=== PATIENT | male | born 1965 | race Caucasian/White ===

== ENCOUNTER 2016-05-03 13:29 | Outpatient (CLI) | payer MEDICAID | END 2016-05-03 13:30 | disposition home or self-care (01) | DX: M16.12 Unilateral primary osteoarthritis, left hip (principal) ==

== ENCOUNTER 2016-07-04 13:30 | Outpatient (CLI) | payer MEDICAID | END 2016-07-04 13:31 | disposition home or self-care (01) | DX: Z01.818 Encounter for other preprocedural examination (principal) ==

== ENCOUNTER 2016-07-06 07:28 | Outpatient (CLI) | payer MEDICAID | END 2016-07-06 07:29 | disposition home or self-care (01) | DX: Z01.812 Encounter for preprocedural laboratory examination (principal) ==

== ENCOUNTER 2016-08-20 10:01 | Inpatient (IN) | payer MEDICAID ==
[2016-08-20] MEDS ORDERED: LACTATED RINGERS 1,000 ML IV ONE ×4 (10:22→16:52)
[2016-08-20] MEDS ORDERED: ceFAZolin 2 GM/50 ML 50 ML IV ONE (10:38)
[2016-08-20] MEDS ORDERED: ROPIVACAINE 0.2% PF 20 ML AMPULE SUBQ ONE (13:34)
[2016-08-20] MEDS ORDERED: MORPHINE PF 5 MG/10 ML AMP SUBQ ONE (13:34)
[2016-08-20] MEDS ORDERED: EPINEPHrine 1 MG/ML AMP IVP ONE (13:34)
[2016-08-20] MEDS ORDERED: KETOROLAC 15 MG/ML VIAL IVP ONE (13:34)
[2016-08-20] MEDS ORDERED: BUPIVACAINE 0.25%-EPI 1:200000 PF 30 ML VIAL SUBQ ONE (13:35)
[2016-08-20] MEDS ORDERED: BISACODYL 5 MG TABLET PO PRN (16:16)
[2016-08-20] MEDS ORDERED: ONDANSETRON 4 MG/2 ML VIAL IVP PRN (16:16)
[2016-08-20] MEDS ORDERED: PROCHLORPERAZINE 10 MG/2 ML VIAL IVP PRN (16:16)
[2016-08-20] MEDS ORDERED: DOCUSATE SODIUM 100 MG CAPSULE PO PRN (16:16)
[2016-08-20] MEDS ORDERED: ACETAMINOPHEN 325 MG TABLET PO PRN (16:16)
[2016-08-20] MEDS ORDERED: BISACODYL 10 MG SUPP PR PRN (16:16)
[2016-08-20] MEDS ORDERED: diphenhydrAMINE 25 MG CAPSULE PO PRN (16:16)
[2016-08-20] MEDS ORDERED: diphenhydrAMINE INJ 50 MG/ML VIAL IVP PRN (16:16)
[2016-08-20] MEDS ORDERED: SENNA 8.6 MG TABLET PO PRN (16:16)
[2016-08-20] MEDS ORDERED: ACETAMINOPHEN 1,000 MG/100 ML 100 ML IV ONE (16:22)
--- NOTE | 2016-08-20 16:30 | OPERATIVE REPORT ---
Operative Report - General Admit Date: 08/20/16 Procedure Date: 08/20/16 Planned Procedure: Left Total Hip Arthroplasty Pre-Op Diagnosis: Left Hip Primary Osteoarthritis Post Op Diagnosis: Same - Procedure Note Primary Surgeon: Hermann Monterroso MD Anesthesia Provider: Kathia Angel CRNA Anesthesia Technique: Combo spinal/epidural, General ET tube, Local Estimated Blood Loss (in cc): 700 Complications: None. - Other Other Information/Narrative: Implants: Gui/Biomet TaperLock Femoral stem Size 14 x 148 mm, High Offset. Acetabular Shell, 56 mm OD, porous ingrowth UHMWPE Acetabular Liner, 40 mm ID. Ceramic Head, Standard Neck Length x 40 mm OD w/ Lexa Taper Collar. Fluids: 2800 mL LR. Urine: 700 mL. Condition: Stable. Disposition: PACU >> MedSurg.
[2016-08-20] MEDS: HYDROmorphone 1 MG/ML SYRINGE ONE ×2 (16:43→16:54)
[2016-08-20] MEDS: SODIUM CHLORIDE FLUSH 0.9% 10 ML SYRINGE IVP SCH (17:33)
[2016-08-20] MEDS: KETOROLAC 30 MG/ML VIAL IVP PRN (17:34)
[2016-08-20] MEDS: SODIUM CHLORIDE 0.45% 1,000 ML IV SCH (17:34)
[2016-08-20] MEDS: HYDROmorphone 1 MG/ML SYRINGE IVP PRN ×3 (19:04→23:58)
[2016-08-20] MEDS: oxyCOD/ACETAMIN 5 MG/325 MG TABLET PO PRN (19:44)
[2016-08-20] MEDS: traMADol 50 MG TABLET PO PRN (20:40)
[2016-08-20] MEDS: ceFAZolin 2 GM/50 ML 50 ML IV SCH (21:59)
--- NOTE | 2016-08-20 22:30 | XRAY Preliminary Report ---
Exam: XR Hip w/Pelvis 2-3V LT IMPRESSION: 1. Left total hip prosthesis. No unexpected postoperative findings. 2. Mild degenerative joint disease in the right hip. [facility] SITE ID: [id number]
--- NOTE | 2016-08-20 22:33 | XRAY Report ---
EXAM: LEFT HIP AND PELVIS RADIOGRAPHY EXAM DATE: 08/20/2016 10:22 PM. HISTORY: Post-op total hip. COMPARISONS: 05/03/2016. TECHNIQUE: 1 view of the pelvis and 1 view of the hip. FINDINGS: Bones: There has been placement of a left total hip prosthesis. No acute fracture seen. Joints: No dislocation. Mild degenerative joint disease in the right hip. Soft Tissues: Grossly unremarkable. IMPRESSION: 1. Left total hip prosthesis. No unexpected postoperative findings. 2. Mild degenerative joint disease in the right hip. [facility] Referring Provider Line: [phone] SITE ID: [id number]
[2016-08-21] MEDS: HYDROmorphone 1 MG/ML SYRINGE IVP PRN ×5 (02:35→19:53)
[2016-08-21] MEDS: SODIUM CHLORIDE 0.45% 1,000 ML IV SCH ×2 (03:04→14:08)
[2016-08-21] MEDS: KETOROLAC 30 MG/ML VIAL IVP PRN ×2 (04:15→11:07)
[2016-08-21] MEDS: ceFAZolin 2 GM/50 ML 50 ML IV SCH (05:22)
[2016-08-21] MEDS: SODIUM CHLORIDE FLUSH 0.9% 10 ML SYRINGE IVP SCH ×3 (05:26→23:25)
[2016-08-21] MEDS: oxyCOD/ACETAMIN 5 MG/325 MG TABLET PO PRN ×4 (06:05→19:53)
[2016-08-21] MEDS: ENOXAPARIN 40 MG/0.4 ML SYRINGE SUBQ SCH (08:39)
[2016-08-21 09:28] LABS: HCT - HEMATOCRIT 37.5 % (42.0-52.0)
[2016-08-21] MEDS ORDERED: MIDAZOLAM 2 MG/2 ML VIAL IVP ONE (12:41)
[2016-08-21] MEDS ORDERED: METOPROLOL 5 MG/5 ML VIAL IVP ONE (12:41)
[2016-08-21] MEDS ORDERED: BUPIVACAINE 0.5% PF 30 ML VIAL SUBQ ONE (12:41)
[2016-08-21] MEDS ORDERED: TRANEXAMIC ACID 1,000 MG/10 ML VIAL IV ONE (12:41)
[2016-08-21] MEDS ORDERED: fentaNYL 100 MCG/2 ML VIAL IVP ONE (12:41)
[2016-08-22] MEDS: HYDROmorphone 1 MG/ML SYRINGE IVP PRN ×7 (00:20→22:00)
[2016-08-22] MEDS: SODIUM CHLORIDE 0.45% 1,000 ML IV SCH ×2 (00:21→11:00)
[2016-08-22] MEDS: ACETAMINOPHEN 1,000 MG/100 ML 100 ML IV PRN ×2 (03:49→19:23)
[2016-08-22] MEDS: SODIUM CHLORIDE FLUSH 0.9% 10 ML SYRINGE IVP SCH ×3 (05:01→22:00)
[2016-08-22] MEDS: oxyCOD/ACETAMIN 5 MG/325 MG TABLET PO PRN ×2 (08:24→13:14)
[2016-08-22] MEDS: KETOROLAC 30 MG/ML VIAL IVP PRN ×3 (08:25→22:00)
[2016-08-22] MEDS: ENOXAPARIN 40 MG/0.4 ML SYRINGE SUBQ SCH (10:59)
[2016-08-22] MEDS: SODIUM CHLORIDE FLUSH 0.9% 10 ML SYRINGE IVP PRN ×2 (11:04→14:17)
[2016-08-22] MEDS: traMADol 50 MG TABLET PO PRN (16:33)
[2016-08-23] MEDS: SODIUM CHLORIDE 0.45% 1,000 ML IV SCH ×3 (00:18→11:52)
[2016-08-23] MEDS: oxyCOD/ACETAMIN 5 MG/325 MG TABLET PO PRN ×3 (01:05→11:52)
[2016-08-23] MEDS: SODIUM CHLORIDE FLUSH 0.9% 10 ML SYRINGE IVP SCH (06:00)
[2016-08-23] MEDS: KETOROLAC 30 MG/ML VIAL IVP PRN (07:19)
[2016-08-23] MEDS: ENOXAPARIN 40 MG/0.4 ML SYRINGE SUBQ SCH (09:33)
[2016-08-23] MEDS: traMADol 50 MG TABLET PO PRN ×2 (09:37→14:39)
[2016-08-23 13:09] VITALS: BP 146/99
--- NOTE | 2016-08-23 13:35 | PROVIDER PROGRESS NOTE ---
Subjective - Prog Note Date Prog Note Date: 08/23/16 Prog Note Time: 13:33 - Subjective Pt reports feeling: Improved (Pain better controlled with combination of Percocet and Tramadol. Up wioth PT today and feels that he is ready to go home.) Objective - Vital Signs/Intake & Output Reviewed Vital Signs: Yes Vital Signs: Vital Signs x48h Temp Pulse Resp BP BP Pulse Ox 08/23/16 13:00 36.8 C 105 H 20 146/99 H 95 08/23/16 08:28 37.0 C 113 H 20 166/103 H 97 Intake & Output: Intake & Output 08/20/16 08/21/16 08/22/16 08/23/16 23:59 23:59 23:59 23:59 Intake Total 3741 2856 2410 1465 Output Total 1800 3800 3180 1500 Balance 1941 -944 -770 -35 - Objective General Appearance: positive: No acute distress, Alert Eyes Bilateral: positive: Normal inspection ENT: positive: ENT inspection nml Neck: positive: Nml inspection Respiratory: positive: No respiratory distress, Breath sounds nml Cardiovascular: positive: Regular rate & rhythm Peripheral Pulses: 2+ Dorsalis pedis (R), 2+ Dorsalis pedis (L), 2+ Posterior tibialis (R), 2+ Posterior tibialis (L) Abdomen: positive: Non-tender, Nml bowel sounds, No distention. negative: Guarding Back: positive: Nml inspection Skin: positive: Color nml, No rash, Warm, Dry Extremities: positive: Other (SWound over Left Buttocks without significant erythema.). negative: Calf tenderness, Rody's sign/cords Neurologic/Psychiatric: positive: Oriented x3, Motor nml, Sensation nml, Mood/ affect nml - Lab Results Fish Bones: 08/21/16 09:20 Assessment/Plan - Problem List (1) Status post total hip replacement, left Impression: Stable Postop. Plan: 1. D/C to home. 2. Walker ambulation, WBAT LLE. 3. Anterior Hip precautions. 4. Scrips fopr Percocet and Tramadol. 5. f/u, Ortho, Loc, wound check, 2 weeks. 6. PT referral.
--- NOTE | 2016-08-23 13:41 | Discharge Plan ---
Discharge Plan Disposition: Home, Self Care Condition: Good Prescriptions: oxyCODONE/ACET 5/325 [Percocet 5 mg/325 mg] 1 tab PO Q4HR PRN #40 tablet PRN Reason: Breakthrough Pain traMADol [Ultram] 50 mg PO Q4HR PRN #40 tablet PRN Reason: Pain Diet: Regular Activity Restrictions: Wt Bearing as Tolerated Shower Restrictions: No Driving Restrictions: Yes Assistance Devices: Walker Weight Bearing: Full Weight Additional Instructions or Follow Up instructions: Followup with Dr. Monterroso, , two weeks for wound check. Follow-Up Care: Outpatient Rehab - PT (Evaluate and Treat, 3w4. Left hip anterior precautions WBAT LLE.) No Smoking: If you smoke, Please STOP! Call for help. Follow-up with: Cat Florez ARNP [Primary Care Provider] - Hermann Monterroso MD [Provider Admit Priv/Credential] -
--- NOTE | 2016-10-02 19:52 | DISCHARGE SUMMARY ---
DATE OF ADMISSION: 08/20/2016 DATE OF DISCHARGE: 08/23/2016 CONDITION ON DISCHARGE: Stable. FINAL DIAGNOSES: 1. Primary osteoarthritis left hip. 2. Status post left total hip arthroplasty. 3. Aftercare following left hip replacement surgery. PROCEDURES: Left total hip arthroplasty on 08/20/2016. HISTORY OF PRESENT ILLNESS: This is a 51-year-old male with a longstanding history of progressive beckie andres left hip osteoarthritis who had been refractory to conservative management. He was admitted to [facility] on 08/20/2016 for left total hip arthroplasty. LABORATORY DATA: 08/21/2016 hematology: Hemoglobin 13.0, hematocrit 37.5. HOSPITAL COURSE: The patient underwent an uncomplicated left total hip arthroplasty on 08/20/2016. Hi s postoperative course was complicated during the first 36 hours by issues with pain control which we re finally achieved with a combination of Dilaudid, Toradol, IV Tylenol and oxycodone/APAP. He ambula darryl with physical therapy and made steady progress with a walker. He was discharged on postoperative day 3. DISCHARGE MEDICATIONS: 1. Acetaminophen 325 mg tablets 2 to 3 tablets p.o. q. 6 hrs p.r.n. pain (patient has). 2. Oxycodone/acetaminophen 5/325 mg, 1 tablet p.o. q. 4 hours p.r.n. pain, #40, no refills. 3. Tramadol 50 mg tablet, 1 tablet p.o. q. 4 hours p.r.n. pain #40, no refills. DISCHARGE INSTRUCTIONS: 1. DIET: Regular. 2. ACTIVITY: Weight bearing as tolerated left lower extremity with walker for ambulation. The patient is discharged to home. Followup with Orthopaedic surgery in 2 weeks for wound check (Dr. Monterroso, ). CODE STATUS: FULL CODE. JOB #: [id number] EXT JOB #:[id number]
--- NOTE | 2016-10-03 06:18 | OPERATIVE REPORT ---
DATE OF SURGERY: 08/20/2016 00:00:00 PREOPERATIVE DIAGNOSIS: Left hip primary osteoarthritis. POSTOPERATIVE DIAGNOSIS: Left hip primary osteoarthritis. NAME OF PROCEDURE: Left total hip arthroplasty via an anterolateral approach. SURGEON: Hermann Monterroso MD ANESTHESIA: Antoine Dickson CRNA ANESTHESIA TECHNIQUE: Combination spinal, epidural and general endotracheal tube with local anesthest ic to the incision sites. ESTIMATED BLOOD LOSS: 700 mL. COMPLICATIONS: None. IMPLANTS: 1. Gui Biomet taper lock femoral stem size 14 x 148 mm high offset. 2. Acetabular shell, 56 mm outer diameter, porous ingrowth. 3. Ultrahigh molecular weight polyethelene acetabular liner 40 mm inner diameter. 4. Ceramic head standard neck length x40 mm outer diameter with Hernandez taper collar. FLUIDS: 2800 mL of lactate ringers. URINE: 700 mL. CONDITION AT END OF PROCEDURE: Stable. DISPOSITION: PACU then Med Surg. INDICATIONS: This is a 51-year-old male with a longstanding history of progressive osteoarthritis in his left hip. Despite conservative measures including a cane to the right hand, activity, modificatio n, physical therapy and exercise, analgesics consisting of acetaminophen and nonsteroidal anti-inflam matory medications, the patient's condition continued to worsen to the point where pain was preventin g him from sleeping at night and preventing him from taking part in most activities. After discussion with the patient, we elected to schedule him for left total hip arthroplasty. PROCEDURE IN DETAIL: After consent identification, the patient was brought to the operating room and placed in the supine position on the operating table. After induction of a general endotracheal anest hesia and appropriate monitoring, a roller board was used to transfer the patient to the operating ta ble on a peg board. The patient was placed in a right lateral decubitus position. An axillary roll wa s placed in the right axilla. Padding was placed underneath the right peroneal nerve. Padded pegs wer e placed at the sternum, the sacrum, the right ischium and the pubis to maintain the pelvis in a perp endicular orientation with respect to the floor. The left lower extremity was then prepped and draped free in the usual sterile fashion for hip replac ement surgery. After an appropriate timeout was conducted, we flexed the hip to a 45 degree angle. A straight line i ncision was made over the lateral aspect of the left thigh paralleling the femur, centered over the g reater trochanter extending 12 cm proximal and 12 cm distal to the tip of the greater trochanter. Ski n and subcutaneous tissue were divided down to the iliotibial band and the tensor fascia sara externa l fascia. These were divided longitudinal with a curved Salvador scissors. Finger dissection was carried out over the gluteus musculature proximal to the iliotibial band and tensor fascia sara. Charnley ret ractor was then placed deep to the IT band. We resected the trochanteric bursa with the electrocauter y. We identified the anterior third of the gluteus medius musculature. We reflected a digastric cuff consisting of the anterior portion of the vastus lateralis and the tendinous origin, as well as the t endinous insertion of the gluteus medius muscle with the anterior third of the muscle off of the ante rior portion of the greater trochanter. We identified the anterior hip capsule with the attached glut eus minimus. We performed an H-shaped capsulotomy with the leg slightly externally rotated. Cobra ret ractors were placed deep to the capsular layer. This allowed us to continue the external rotation of the hip to dislocate the hip with the assistance of a femoral skid. This allowed us to complete our c apsulotomy inferiorly to the lesser trochanter and superiorly over the medial wall of the greater tro chanter back to the piriformis fossa. With the lower leg perpendicular to the floor and placed in the hip bag, we mapped out a femoral cut at a 45 degree angle approximately 1 cm proximal to the lesser trochanter. This cut was made with a r eciprocating saw and completed with an osteotome. A cork screw was then used to remove the femur kristian g with electrocautery to complete reflection of any capsular attachments. A Rongeur and curette were used to clean out the floor of the acetabulum in the cotyloid fossa. We th en sequentially reamed the acetabulum beginning with a 47 mm diameter reamer up to a 55 mm size. A 55 mm trial was then inserted in the acetabulum and noted to have a good fit. We used the cancellous re amings from the last [address] in the acetabulum and placed the 55 mm reamer on reverse, imp acting this bone in interstices and cystic structures. We then impacted a 56 mm outer diameter porous ingrowth acetabular shell into the acetabulum in approximately 45 degrees of coverage and 10 degrees of anteversion. Good interference fit was obtained without the necessity of placing any screws. We t lynn used the [employer] cutter and lateralizing reamer to localize the canal of the femur. We sequentiall y broached beginning with a size 4 broach up to a size 14 broach which gave good rotational fit and d epth. We selected a standard offset 40 mm trial head with 0 neck length and inserted this onto the si ze 14 broach to trial the components. We inserted the polyethylene acetabular liner into the acetabul ar component. We then reduced the hip and ranged it and performed a shuck test with satisfactory resu lts. We then dislocated the trial femoral head and neck and femur from the acetabulum. We removed the trial components. We irrigated the acetabulum. We then impacted a size 14 x 148 mm high offset femor al stem into the femoral canal. Good rotational stability was noted. Excellent interference fit was a lso noted. We then impacted the Hernandez taper collar and standard neck length x40 mm outer diameter ceramic head o nto the trunnion of the femoral component. After further irrigation, we irrigated the hip capsule and surrounding tissues with 60 mL of our combination Duramorph, Toradol, epinephrine and bupivacaine in jection totaling 60 mL. We then reduced the hip and ranged it again to verify good fit of the components and negative shuck t est. Good stability was noted. We then sequentially closed the hip by repairing the capsulotomy with a running interlocked #5 Ethibond suture. We used a towel clip to make suitable holes in the anterior superior portion of the greater trochanter and used #2 fiber wire sutures to repair the anterior por tion of the gluteus medius and digastric sleeve of the anterior portion of the vastus lateralis to th e anterior superior portion of the greater trochanter. Good repair was affected. We then irrigated th e wound again and closed the iliotibial band with a running interlock #5 Ethibond suture. Interrupted 2-0 Vicryl sutures were then placed to the subcuticular layer followed by running 3-0 Monocryl sutur e to the dermis. We injected the wound with 40 mL of 0.5% Marcaine with epinephrine. After the thigh and drying, we placed a Mepilex silver dressing over the wound. On completion of the procedure, the p atellen was extubated and transferred to the recovery room in good condition having tolerated the proc edure well. JOB #: [id number] EXT JOB #:[id number]
== END 2016-08-23 15:15 | disposition home or self-care (01) | DRG 470 ==
LOC: MS 10:01
PROVIDERS: ADMIT Orthopaedic Surgery; ATTEND Orthopaedic Surgery
PROC: 0SRB02A Replacement of Left Hip Joint with Metal on Polyethylene Synthetic Substitute, Uncemented, Open Approach (ICD-10-PCS; principal; 2016-08-20 11:00)
DX: M16.12 Unilateral primary osteoarthritis, left hip (principal); I48.91 Unspecified atrial fibrillation; B19.20 Unspecified viral hepatitis C without hepatic coma; G89.18 Other acute postprocedural pain; F17.210 Nicotine dependence, cigarettes, uncomplicated; E66.9 Obesity, unspecified; Z68.35 Body mass index [BMI] 35.0-35.9, adult
CPT/HCPCS: 36415; 85014; 85018

== ENCOUNTER 2016-08-26 12:50 | Emergency (ER) | payer MEDICAID ==
[2016-08-26 13:09] VITALS: BP 122/82
--- NOTE | 2016-08-26 14:07 | ED Physician Documentation ---
History of Present Illness - Stated complaint Stated Complaint: BANDAGES REPLACED - Chief complaint Chief Complaint: Wound - Additonal information Additional information: hx from pt 51 male s/p hip replacement at [facility] Dr Monterroso last week his bandage came partially off and he would like it replaced otherwise doing well no fever cough soa cp Review of Systems Musculoskeletal: reports: Other (post L hip) PD PAST MEDICAL HISTORY - Past Medical History Cardiovascular: Atrial fibrillation Respiratory: None Endocrine/Autoimmune: None GI: Hepatitis : None HEENT: Chronic vision loss Psych: None Musculoskeletal: Osteoarthritis Derm: None - Past Surgical History Past Surgical History: Yes General: Appendectomy Ortho: Other - Present Medications Home Medications: Ambulatory Orders Medication Instructions Recorded Confirmed Acetaminophen [Tylenol] 650 - 975 mg PO Q4HR PRN #0 tablet 08/23/16 08/26/16 oxyCODONE/ACET 5/325 [Percocet 5 1 tab PO Q4HR PRN #40 tablet 08/23/16 08/26/16 mg/325 mg] traMADol [Ultram] 50 mg PO Q4HR PRN #40 tablet 08/23/16 08/26/16 - Allergies Allergies/Adverse Reactions: Allergies Allergy/AdvReac Type Severity Reaction Status Date / Time No Known Drug Allergies Allergy Verified 08/26/16 13:09 - Social History Does the pt smoke?: Yes Smoking Status: Current every day smoker Does the pt drink ETOH?: No Does the pt have substance abuse?: No - Immunizations Immunizations are current?: Yes - POLST Patient has POLST: No PD ED PE NORMAL - Vitals Vital signs reviewed: Yes - Extremities Extremities: Other (L hip banage appears to have come off where skin folds, carefully removed rest, one or two sterisrips came off to, wound healing well, no erythema swelling dehisc dc) Results - Vitals Vitals: Vital Signs - 24 hr 08/26/16 13:05 Temperature 36.3 C L Heart Rate 93 Respiratory 14 Rate Blood Pressure 122/82 H O2 Saturation 100 Oxygen O2 Source Room air PD MEDICAL DECISION MAKING - ED course ED course: dressing replaced Departure - Departure Disposition: 01 Home, Self Care Clinical Impression: Visit for wound check Condition: Good Follow-Up: Hermann Monterroso MD [Provider Admit Priv/Credential] - Comments: Your surgery is healing very well Follow up with Dr Monterroso as scheduled
== END 2016-08-26 14:10 | disposition home or self-care (01) ==
LOC: ED 12:50
DX: Z48.01 Encounter for change or removal of surgical wound dressing (principal); Z96.642 Presence of left artificial hip joint; F17.200 Nicotine dependence, unspecified, uncomplicated
CPT/HCPCS: 99281

== ENCOUNTER 2017-03-08 09:45 | Outpatient (CLI) | payer MEDICAID | END 2017-03-08 10:00 | disposition home or self-care (01) | LOC: RT.N 09:45 | PROVIDERS: ATTEND Nurse Practitioner Gerontology | DX: I48.91 Unspecified atrial fibrillation (principal) | CPT/HCPCS: 93005 ==

== ENCOUNTER 2017-03-08 10:28 | Outpatient (CLI) | payer MEDICAID ==
[2017-03-08 13:02] LABS: BASOPHILS # (AUTO) 0.1 10^3/uL (0.0-0.1); EOSINOPHILS # (AUTO) 0.4 10^3/uL (0.0-0.7); EOSINOPHILS % (AUTO) 5.4 %; HGB - HEMOGLOBIN 14.1 g/dL (14.0-18.0); LYMPHOCYTES # (AUTO) 1.2 10^3/uL (1.5-3.5); LYMPHOCYTES % (AUTO) 16.9 %; MEAN CORPUSCULAR HEMOGLOBIN 29.8 pg (27.0-31.0); MEAN CORPUSCULAR HGB CONC 34.9 g/dL (32.0-36.0); MEAN CORPUSCULAR VOLUME 85.3 fL (80.0-94.0); MEAN PLATELET VOLUME 7.5 fL (7.4-11.4); MONOCYTES # (AUTO) 0.6 10^3/uL (0.0-1.0); NEUTROPHILS # (AUTO) 5.1 10^3/uL (1.5-6.6); NEUTROPHILS % (AUTO) 68.7 %; PLT - PLATELET COUNT 265 10^3/uL (130-450); RED BLOOD COUNT 4.74 10^6/uL (4.70-6.10); RED CELL DISTRIBUTION WIDTH 14.5 % (12.0-15.0); WHITE BLOOD COUNT 7.4 x10^3/uL (4.8-10.8)
[2017-03-08 13:08] LABS: ALBUMIN 3.8 g/dL (3.2-5.5); ALBUMIN/GLOBULIN RATIO 1.2 (1.0-2.2); ALKALINE PHOSPHATASE 64 IU/L (42-121); ALT ALANINE AMINOTRANSFERASE 25 IU/L (10-60); AST ASPARTATE AMINOTRANSFERASE 27 IU/L (10-42); BILIRUBIN,TOTAL 0.8 mg/dL (0.2-1.0); BUN - BLOOD UREA NITROGEN 15 mg/dL (6-20); CALCIUM 8.5 mg/dL (8.5-10.3); CARBON DIOXIDE - CO2 27 mmol/L (21-32); CHLORIDE 103 mmol/L (101-111); CHOL/HDL RATIO 2.7 (<5.0); CHOLESTEROL 153 mg/dL; CREATININE 0.8 mg/dL (0.6-1.2); GFR - MDRD 101 (>89); GLUCOSE 86 mg/dL (70-100); HDL CHOLESTEROL 57 mg/dL; LDL CHOLESTEROL,CALCULATED 86 mg/dL; LDL/HDL RATIO 1.5 (<3.6); SODIUM 137 mmol/L (135-145); TOTAL PROTEIN 7.1 g/dL (6.7-8.2); VLDL CHOLESTEROL 10 mg/dL
== END 2017-03-08 10:29 | disposition home or self-care (01) ==
LOC: LAB.N 10:28
PROVIDERS: ATTEND Nurse Practitioner Gerontology
DX: E87.6 Hypokalemia (principal); B19.20 Unspecified viral hepatitis C without hepatic coma; E66.9 Obesity, unspecified
CPT/HCPCS: 36415; 80050; 80061

== ENCOUNTER 2017-06-02 18:11 | Outpatient (CLI) | payer MEDICAID | END 2017-06-02 18:12 | disposition critical access hospital (66) | LOC: EMS 18:11 | PROVIDERS: ATTEND Surgery | DX: S81.832A Puncture wound without foreign body, left lower leg, initial encounter (principal); X58.XXXA Exposure to other specified factors, initial encounter; Y93.01 Activity, walking, marching and hiking | CPT/HCPCS: A0425; A0429 ==

== ENCOUNTER 2017-06-02 18:20 | Emergency (ER) | payer MEDICAID ==
[2017-06-02 18:24] VITALS: BP 130/118
[2017-06-02] MEDS ORDERED: LIDOCAINE 1%-EPI 1:100000 20 ML MDV ONE (18:33)
--- NOTE | 2017-06-02 18:34 | ED Physician Documentation ---
PD HPI LOWER EXT INJURY - Stated complaint Stated Complaint: PUNCTURE WOUND - Chief complaint Chief Complaint: Ext Problem - History obtained from History obtained from: Patient, EMS - History of Present Illness PD HPI LOW EXT INJURY LOCATION: Left, Other (He has a varicose vein on the left frazier and he bumped it while working outside today and it started bleeding profusely. He is up-to-date on tetanus.) Pain level max: 0 Review of Systems Constitutional: reports: Reviewed and negative Cardiac: reports: Reviewed and negative Respiratory: reports: Reviewed and negative GI: reports: Reviewed and negative PD PAST MEDICAL HISTORY - Past Medical History Cardiovascular: Atrial fibrillation Respiratory: None Endocrine/Autoimmune: None GI: Hepatitis : None HEENT: Chronic vision loss Psych: None Musculoskeletal: Osteoarthritis Derm: None - Past Surgical History Past Surgical History: Yes General: Appendectomy Ortho: Other - Present Medications Home Medications: Ambulatory Orders Medication Instructions Recorded Confirmed traMADol [Ultram] 50 mg PO Q4HR PRN #40 tablet 08/23/16 08/26/16 - Allergies Allergies/Adverse Reactions: Allergies Allergy/AdvReac Type Severity Reaction Status Date / Time No Known Drug Allergies Allergy Verified 06/02/17 18:24 - Social History Does the pt smoke?: Yes Smoking Status: Current every day smoker Does the pt drink ETOH?: No Does the pt have substance abuse?: No - Immunizations Immunizations are current?: Yes - POLST Patient has POLST: No PD ED PE NORMAL - Vitals Vital signs reviewed: Yes - General General: Alert and oriented X 3, No acute distress - Extremities Extremities: Other (There is a profusely bleeding small puncture wound over varicose vein on the anterior left leg) - Neuro Neuro: Alert and oriented X 3, Normal speech - Psych Psych: Normal mood, Normal affect Results - Vitals Vitals: Vital Signs - 24 hr 06/02/17 18:22 Temperature 36.3 C L Heart Rate 99 Respiratory 18 Rate Blood Pressure 130/118 H O2 Saturation 98 Oxygen O2 Source Room air Procedures - Laceration (location) L leg Length in cm: 0.2 Wound type: Linear Anesthesia: Lidocaine 1% with epi Wound Preparation: Chlorhexadine Skin layer closure: Nylon, Interrupted, Size #-0 - enter number (4-0), Sutures - enter # (2) Other: Tetanus UTD Complexity: Simple PD MEDICAL DECISION MAKING - ED course ED course: 52-year-old gentleman with bleeding varicose vein, 2 sutures were placed and it was hemostatic after that. Departure - Departure Disposition: 01 Home, Self Care Clinical Impression: Bleeding from varicose vein Condition: Good Record reviewed to determine appropriate education?: Yes Instructions: ED Veins Varicose Comments: Come back for any signs of infection which would include: Redness, swelling, drainage, increased pain, or fevers. Follow-up with your physician in 10-14 days for suture removal. Your blood pressure was elevated today on check into the emergency department. This does not mean that you have hypertension, it is a common phenomenon to come to the emergency department and have elevated blood pressure. I recommend that you see your primary care physician within the week to have it rechecked when you are feeling better.
== END 2017-06-02 18:52 | disposition home or self-care (01) ==
LOC: EDUNIT# → ED 18:20
DX: I83.892 Varicose veins of left lower extremity with other complications (principal); F17.200 Nicotine dependence, unspecified, uncomplicated
CPT/HCPCS: 12001; 99282; 99283

== ENCOUNTER 2017-06-13 07:59 | Outpatient (CLI) | payer MEDICAID ==
[2017-06-13 08:30] LABS: CHOL/HDL RATIO 2.6 (<5.0); CHOLESTEROL 155 mg/dL; HDL CHOLESTEROL 60 mg/dL; LDL CHOLESTEROL,CALCULATED 85 mg/dL; LDL/HDL RATIO 1.4 (<3.6); VLDL CHOLESTEROL 10 mg/dL
== END 2017-06-13 08:00 | disposition home or self-care (01) ==
LOC: LAB 07:59
PROVIDERS: ATTEND Internal Medicine Cardiovascular Disease
DX: Z00.00 Encounter for general adult medical examination without abnormal findings (principal)
CPT/HCPCS: 36415; 80061; 83721

== ENCOUNTER 2017-06-16 08:03 | Emergency (ER) | payer MEDICAID ==
[2017-06-16 08:09] VITALS: BP 140/98
[2017-06-16] MEDS ORDERED: BACITRACIN OINT TOP ONE (08:20)
--- NOTE | 2017-06-16 08:30 | ED Physician Documentation ---
History of Present Illness - Stated complaint Stated Complaint: SUTURE REMOVAL/L LEG - Chief complaint Chief Complaint: Ext Problem - Additonal information Additional information: pt had a norris scratch his L ant lower leg causing a varicose vein to bleed 2 weeks ago seen in ED and 2 sutures placed doing well here for suture removal Review of Systems Skin: reports: Laceration (s) PD PAST MEDICAL HISTORY - Past Medical History Cardiovascular: Atrial fibrillation Respiratory: None Endocrine/Autoimmune: None GI: Hepatitis : None HEENT: Chronic vision loss Psych: None Musculoskeletal: Osteoarthritis Derm: None - Past Surgical History Past Surgical History: Yes General: Appendectomy Ortho: Other - Present Medications Home Medications: Ambulatory Orders Medication Instructions Recorded Confirmed Metoprolol Succinate 50 mg PO 06/16/17 - Allergies Allergies/Adverse Reactions: Allergies Allergy/AdvReac Type Severity Reaction Status Date / Time No Known Drug Allergies Allergy Verified 06/02/17 18:24 - Social History Does the pt smoke?: Yes Smoking Status: Current every day smoker Does the pt drink ETOH?: No Does the pt have substance abuse?: No - Immunizations Immunizations are current?: Yes - POLST Patient has POLST: No PD ED PE NORMAL - Vitals Vital signs reviewed: Yes - Derm Derm: Other (L lef well healed small wound) Results - Vitals Vitals: Vital Signs - 24 hr 06/16/17 08:07 Temperature 36.4 C L Heart Rate 91 Respiratory 14 Rate Blood Pressure 140/98 H O2 Saturation 98 Oxygen O2 Source Room air PD MEDICAL DECISION MAKING - ED course ED course: 2 sutures removed intact s complication Departure - Departure Disposition: 01 Home, Self Care Clinical Impression: Visit for suture removal Condition: Good Instructions: ED Wound Check Sutr Remove No Infec Follow-Up: Cat Florez ARNP [Primary Care Provider] -
== END 2017-06-16 08:41 | disposition home or self-care (01) ==
LOC: ED 08:03
DX: S81.812D Laceration without foreign body, left lower leg, subsequent encounter (principal); X58.XXXD Exposure to other specified factors, subsequent encounter; F17.200 Nicotine dependence, unspecified, uncomplicated
CPT/HCPCS: 99282; A9270

== ENCOUNTER 2017-09-06 10:58 | Outpatient (CLI) | payer MEDICAID ==
--- NOTE | 2017-09-06 12:37 | XRAY Report ---
Procedure Date: 09/06/2017 Accession Number: [id number] / [id number] Procedure: XRN - Shoulder 2 View RT CPT Code: FULL RESULT: EXAM: Shoulder 2 View RT DATE: 09/06/2017 11:14 AM CLINICAL HISTORY: R SHOULDER PAIN COMPARISON: None. TECHNIQUE: 3 views. FINDINGS: Bones: Normal. No fracture or bone lesion. Joints: Degenerative changes of the glenohumeral and acromioclavicular joints. Soft tissues: The visualized hemithorax is unremarkable. No soft tissue swelling. IMPRESSION: Osteoarthritis. No evidence of acute fracture. [facility]
== END 2017-09-06 10:59 | disposition home or self-care (01) ==
LOC: DI.N 10:58
PROVIDERS: ATTEND Family Medicine
DX: M19.011 Primary osteoarthritis, right shoulder (principal)

== ENCOUNTER 2018-05-23 07:32 | Emergency (ER) | payer MEDICAID ==
[2018-05-23 07:45] VITALS: BP 149/104
--- NOTE | 2018-05-23 08:01 | ED Physician Documentation ---
PD HPI HEENT - Stated complaint Stated Complaint: SWOLLEN RIGHT SIDE OF FACE - Chief complaint Chief Complaint: Heent - History obtained from History obtained from: Patient - History of Present Illness Timing - onset: Yesterday Timing - details: Abrupt onset, Still present (worse today) Location: Tooth (right lower tooth hurting, has gum swelling and today swelling of the right mandible/face.) Associated symptoms: Facial swelling. No: Fever, Congestion, Swollen nodes, Cough Similar symptoms before: Has not had sx before Recently seen: Not recently seen Review of Systems Constitutional: denies: Fever, Myalgias Throat: reports: Dental pain / toothache, Other (right facial swelling around mandible) Cardiac: denies: Chest pain / pressure Respiratory: denies: Cough PD PAST MEDICAL HISTORY - Past Medical History Cardiovascular: Atrial fibrillation Respiratory: None Endocrine/Autoimmune: None GI: Hepatitis : None HEENT: Chronic vision loss Psych: None Musculoskeletal: Osteoarthritis Derm: None - Past Surgical History Past Surgical History: Yes General: Appendectomy Ortho: Other - Present Medications Home Medications: Ambulatory Orders Medication Instructions Recorded Confirmed RX: Metoprolol Succinate 50 mg PO 06/16/17 Chlorhexidine Gluconate [Peridex] 5 ml PO DAILY #118 ml 05/23/18 Hydrocodone/Acetaminophen [[place] 1 each PO Q6H PRN #15 tablet 05/23/18 5-325 Tablet] RX: Clindamycin HCl [Clindamycin 300 mg PO TID #21 capsule 05/23/18 300MG CAP] - Allergies Allergies/Adverse Reactions: Allergies Allergy/AdvReac Type Severity Reaction Status Date / Time No Known Drug Allergies Allergy Verified 06/02/17 18:24 - Social History Does the pt smoke?: Yes Smoking Status: Current every day smoker Does the pt drink ETOH?: No Does the pt have substance abuse?: No - Immunizations Immunizations are current?: Yes - POLST Patient has POLST: No PD ED PE NORMAL - Vitals Vital signs reviewed: Yes - General General: Alert and oriented X 3, No acute distress, Well developed/nourished - HEENT HEENT: Moist mucous membranes, Pharynx benign. No: Dentition benign (poor dentition, with severe decay. Swelling of gum right lower, without fluctuance. Facial swelling right mandible without focal induration. No redness. ) - Neck Neck: Supple, no meningeal sign - Cardiac Cardiac: RRR, No murmur - Respiratory Respiratory: Clear bilaterally - Derm Derm: Normal color, Warm and dry - Neuro Neuro: Alert and oriented X 3, box car loader 2-12 intact, No motor deficit, Normal speech Results - Vitals Vitals: Vital Signs - 24 hr 05/23/18 07:41 Temperature 35.6 C L Heart Rate 77 Respiratory 18 Rate Blood Pressure 149/104 H O2 Saturation 98 Oxygen O2 Source Room air Departure - Departure Disposition: 01 Home, Self Care Clinical Impression: Dental infection Condition: Stable Record reviewed to determine appropriate education?: Yes Instructions: ED Abscess Dental Follow-Up: Aidan Camacho MD [Primary Care Provider] - Prescriptions: Chlorhexidine Gluconate [Peridex] 5 ml PO DAILY #118 ml RX: Clindamycin HCl [Clindamycin 300MG CAP] 300 mg PO TID #21 capsule Hydrocodone/Acetaminophen [[place] 5-325 Tablet] 1 each PO Q6H PRN #15 tablet PRN Reason: Pain Comments: Use some antiseptic mouth rinse daily such as Peridex prescription. Cleanse and brush the teeth and gums daily as well. Use some ibuprofen 2-3 times a day. A dd Tylenol or hydrocodone if needed for pain. Clindamycin antibiotic 3 times a day for a week for the infection. Recheck if not improving over the next day or so. Discharge Date/Time: 05/23/18 08:15
[2018-05-23] MEDS ORDERED: ACETAMINOPHEN 325 MG TABLET PO STA (08:02)
[2018-05-23] MEDS ORDERED: CLINDAMYCIN 150 MG CAPSULE PO STA (08:02)
== END 2018-05-23 08:15 | disposition home or self-care (01) ==
LOC: ED 07:32
DX: K04.7 Periapical abscess without sinus (principal); K75.9 Inflammatory liver disease, unspecified; F17.200 Nicotine dependence, unspecified, uncomplicated
CPT/HCPCS: 99283; A9270

== ENCOUNTER 2018-06-19 14:35 | Emergency (ER) | payer MEDICAID ==
[2018-06-19 14:42] VITALS: BP 133/97
--- NOTE | 2018-06-19 14:51 | ED Physician Documentation ---
PD HPI DYSPNEA - Stated complaint Stated Complaint: COUGH/HEAD ACHE - Chief complaint Chief Complaint: Resp - History obtained from History obtained from: Patient - History of Present Illness Timing - onset: Other (53-year-old gentleman with history of atrial fibrillation presents with 3 weeks of productive cough with yellow sputum and shortness of breath with coughing. No fevers.) Review of Systems Constitutional: denies: Fever, Chills Cardiac: denies: Chest pain / pressure, Palpitations Respiratory: reports: Dyspnea, Cough GI: denies: Abdominal Pain, Nausea, Vomiting PD PAST MEDICAL HISTORY - Past Medical History Cardiovascular: Atrial fibrillation Respiratory: None Endocrine/Autoimmune: None GI: Hepatitis : None HEENT: Chronic vision loss Psych: None Musculoskeletal: Osteoarthritis Derm: None - Past Surgical History Past Surgical History: Yes General: Appendectomy Ortho: Other - Present Medications Home Medications: Ambulatory Orders Medication Instructions Recorded Confirmed Doxycycline Hyclate 100 mg PO BID #14 capsule 06/19/18 predniSONE [Deltasone] 60 mg PO DAILY 5 Days tablet 06/19/18 - Allergies Allergies/Adverse Reactions: Allergies Allergy/AdvReac Type Severity Reaction Status Date / Time No Known Drug Allergies Allergy Verified 06/19/18 14:42 - Social History Does the pt smoke?: Yes Smoking Status: Current every day smoker Does the pt drink ETOH?: No Does the pt have substance abuse?: No - Immunizations Immunizations are current?: Yes - POLST Patient has POLST: No PD ED PE NORMAL - Vitals Vital signs reviewed: Yes - General General: Alert and oriented X 3, No acute distress - HEENT HEENT: PERRL, EOMI, Ears normal, Pharynx benign - Neck Neck: Supple, no meningeal sign, No bony TTP - Respiratory Respiratory: No respiratory distress, Other (Wheezy throughout without focal findings) - Extremities Extremities: Other (Moderate bilateral pitting pedal edema which she says is chronic and unchanged with this illness.) - Neuro Neuro: Alert and oriented X 3, Normal speech Results - Vitals Vitals: Vital Signs - 24 hr 06/19/18 14:40 Temperature 35.6 C L Heart Rate 60 Respiratory 14 Rate Blood Pressure 133/97 H O2 Saturation 96 Oxygen O2 Source Room air PD MEDICAL DECISION MAKING - ED course ED course: 53-year-old gentleman with bronchitis, he is generally worsening in the time course does merit treatment with antibiotics. Departure - Departure Disposition: Home, Self Care Clinical Impression: Bronchitis Condition: Good Record reviewed to determine appropriate education?: Yes Instructions: Bronchitis Acute Dc Prescriptions: Doxycycline Hyclate 100 mg PO BID #14 capsule predniSONE [Deltasone] 60 mg PO DAILY 5 Days tablet Comments: Call your doctor to arrange a follow-up appointment, make the next available appointment. In the interim, return anytime if worse or if new symptoms develop. Your blood pressure was elevated today on check into the emergency department. This does not mean that you have hypertension, it is a common phenomenon to come to the emergency department and have elevated blood pressure. I recommend that you see your primary care physician within the week to have it rechecked when you are feeling better.
== END 2018-06-19 14:57 | disposition home or self-care (01) ==
LOC: ED 14:35
DX: J40 Bronchitis, not specified as acute or chronic (principal); R03.0 Elevated blood-pressure reading, without diagnosis of hypertension; F17.200 Nicotine dependence, unspecified, uncomplicated
CPT/HCPCS: 99283

== ENCOUNTER 2018-08-13 09:47 | Emergency (ER) | payer MEDICAID ==
[2018-08-13] MEDS ORDERED: IPRATROPIUM/ALBUTEROL 3 ML NEB INH STA (10:40)
[2018-08-13] MEDS ORDERED: AMOX/CLAV 875 MG/125 MG TABLET PO STA (10:42)
--- NOTE | 2018-08-13 10:48 | ED Physician Documentation ---
PD HPI HEENT - Stated complaint Stated Complaint: SINUS PRESSURE - Chief complaint Chief Complaint: Heent - History obtained from History obtained from: Patient - History of Present Illness Timing - onset: How many weeks ago (3) Timing - duration: Weeks (3) Timing - details: Gradual onset, Still present Pain level max: 3 Pain level now: 3 Location: Sinuses Improves: Nothing. No: Medication Worsens: No: Swalllowing, Noise, Position Associated symptoms: Congestion (purulent nasal drainage), Headache, Cough. No: Fever, Rhinorrhea, Trismus, Swollen nodes, Facial swelling Similar symptoms before: Treatment (previously was given clindamycin for sinus congestion and doxycycline for a cough) Recently seen: Emergency Dept (for a cough a few weeks ago) - Treatment prior to arrival Treatment prior to arrival: nasal spray Review of Systems Ten Systems: 10 systems reviewed and negative Constitutional: denies: Fever, Chills Eyes: denies: Discharge Ears: denies: Loss of hearing Nose: reports: Rhinorrhea / runny nose, Congestion, Sinus pressure / pain Throat: reports: Sore throat Respiratory: reports: Cough, Wheezing. denies: Dyspnea, Hemoptysis GI: denies: Abdominal Pain, Abdominal Swelling, Nausea, Vomiting Skin: denies: Rash Neurologic: reports: Headache. denies: Generalized weakness, Focal weakness, Numbness PD PAST MEDICAL HISTORY - Past Medical History Past Medical History: Yes Cardiovascular: Atrial fibrillation Respiratory: None Endocrine/Autoimmune: None GI: Hepatitis : None HEENT: Chronic vision loss Psych: None Musculoskeletal: Osteoarthritis Derm: None - Past Surgical History Past Surgical History: Yes General: Appendectomy Ortho: Other - Present Medications Home Medications: Ambulatory Orders Medication Instructions Recorded Confirmed Amox/Clav 875/125 [Augmentin] 1 each PO Q12H #20 tablet 08/13/18 RX: Albuterol Sulf [Ventolin Hfa 1 - 2 puffs INH Q4HR PRN #1 inhaler 08/13/18 Inhaler] - Allergies Allergies/Adverse Reactions: Allergies Allergy/AdvReac Type Severity Reaction Status Date / Time No Known Drug Allergies Allergy Verified 08/13/18 09:56 - Social History Does the pt smoke?: Yes Smoking Status: Current every day smoker Does the pt drink ETOH?: No Does the pt have substance abuse?: No - Immunizations Immunizations are current?: Yes - POLST Patient has POLST: No PD ED PE NORMAL - Vitals Vital signs reviewed: Yes - General General: Alert and oriented X 3 - HEENT HEENT: Atraumatic, Ears normal, Moist mucous membranes, Pharynx benign, Dentition benign - Neck Neck: Supple, no meningeal sign - Cardiac Cardiac: RRR, No murmur, No gallop, No rub - Respiratory Respiratory: Other (bilateraly diffuse expiratory wheezing, no rales or rhonchi) - Abdomen Abdomen: Soft, Non tender, Non distended - Male Male : Deferred - Rectal Rectal: Deferred - Derm Derm: Normal color, Warm and dry, No rash - Neuro Neuro: Alert and oriented X 3 Eye Opening: Spontaneous Motor: Obeys Commands Verbal: Oriented GCS Score: 15 - Psych Psych: Normal mood, Normal affect PD ED PE EXPANDED - HEENT HEENT: Right maxillary sinus TTP, Left maxillary sinus TTP, Nasal congestion, Other (nasal drainage bilaterally, purulent appearing ) Results - Vitals Vitals: Vital Signs - 24 hr 08/13/18 08/13/18 08/13/18 09:54 10:50 11:19 Temperature 35.6 C L 36.6 C Heart Rate 63 88 56 L Respiratory 14 12 16 Rate Blood Pressure 139/108 H 144/96 H O2 Saturation 96 96 Oxygen O2 Source Room air PD MEDICAL DECISION MAKING - ED course Complexity details: reviewed old records, reviewed results, re-evaluated patient, considered differential, d/w patient ED course: DDx - URI, viral sinusitis, bacterial sinusitis, fungal sinusitis, allergic sinusitis, bronchitis, COPD, pneumonia 53 y/o smoker with ongoign nasal congestion, sinus pressure, post nasal drip and cough. Exam shows moderate purulent bilateral nasal congestion and wheezing diffusely though pt denies feeling sob. Given a duoneb here and augmentin for his sinusitis. Advised to use nasal decongestants and sudafed, ibuprofen as needed. Pt to f/u with PCP if symptoms persist. Departure - Departure Disposition: 01 Home, Self Care Clinical Impression: Sinusitis, Reactive airway disease Condition: Stable Record reviewed to determine appropriate education?: Yes Instructions: ED Sinusitis Abx Tx Follow-Up: Cat Florez ARNP [Primary Care Provider] - (within 2 weeks ) Prescriptions: RX: Albuterol Sulf [Ventolin Hfa Inhaler] 1 - 2 puffs INH Q4HR PRN #1 inhaler PRN Reason: Shortness Of Air/Wheezing Amox/Clav 875/125 [Augmentin] 1 each PO Q12H #20 tablet Comments: You likely have a sinusitis infection and also appear to have some wheezing from reactive airway disease. Complete the entire course of the antibiotic prescribed and take albuterol as needed for wheezing. Try to cut back on smoking and follow up with your doctor to recheck your symptoms. Return to the ED if difficulty breathing. Discharge Date/Time: 08/13/18 11:20
[2018-08-13 11:20] VITALS: BP 144/96
== END 2018-08-13 11:20 | disposition home or self-care (01) ==
LOC: ED 09:47
DX: J32.9 Chronic sinusitis, unspecified (principal); J45.909 Unspecified asthma, uncomplicated; F17.200 Nicotine dependence, unspecified, uncomplicated
CPT/HCPCS: 94640; 99283; A9270

== ENCOUNTER 2019-02-10 12:02 | Emergency (ER) | payer MEDICAID ==
[2019-02-10] MEDS ORDERED: diltiaZEM INJ 5 MG/ML VIAL IVP STA (12:16)
--- NOTE | 2019-02-10 12:27 | ED Physician Documentation ---
PD HPI CHEST PAIN - Stated complaint Stated Complaint: RAPID HEART RATE - PCP REFERRAL - History obtained from History obtained from: Patient - History of Present Illness Timing - onset: How many weeks ago (2-3) Timing - onset during: Light activity Timing - details: Gradual onset Pain level now: 0 Associated symptoms: Shortness of air, Palpitations. No: Diaphoresis, Nausea, Vomiting, Feeling faint / dizzy, Cough Recently seen: Clinic - Additional information Additional information: This is a 53-year-old man who was sent from his primary care provider's office for evaluation of A. fib with RVR. Patient has had a history of A. fib and was on metoprolol and aspirin up until about a year ago when he just quit taking those medications. He is noticed over the past few weeks to days that he has been short of breath but he has not noticed any peripheral edema. He denies any chest pain although he has had some palpitations. He made an appointment with his doctor who evaluated him and sent him here to the emergency department. He denies any history of [place] but he was seeing a blade changer Dr. Boggs in the past. Patient denies any use of any other prescription medications. He has not been dizzy. He has had a mild cold with some slight coughing and stuffy nose about 4 months ago but no recent symptoms. No nausea vomiting or diarrhea. Denies a history of thyroid disorder, diabetes mellitus or recent fever. Patient is on disability for a left total hip replacement. Review of Systems Constitutional: denies: Fever Eyes: denies: Decreased vision Ears: denies: Ear pain Nose: denies: Congestion Throat: denies: Sore throat Cardiac: reports: Palpitations. denies: Chest pain / pressure Respiratory: reports: Dyspnea. denies: Cough GI: denies: Abdominal Pain, Nausea, Vomiting, Diarrhea : denies: Dysuria Skin: denies: Rash Musculoskeletal: denies: Back pain Endocrine: reports: Other (No but diabetes or thyroid disorder.) PD PAST MEDICAL HISTORY - Past Medical History Cardiovascular: Atrial fibrillation Respiratory: None Endocrine/Autoimmune: None GI: Hepatitis : None HEENT: Chronic vision loss Psych: None Musculoskeletal: Osteoarthritis Derm: None - Past Surgical History Past Surgical History: Yes General: Appendectomy Ortho: Other - Present Medications Home Medications: Ambulatory Orders Medication Instructions Recorded Confirmed Albuterol Sulf [Ventolin Hfa 1 - 2 puffs INH Q4HR PRN #1 inhaler 08/13/18 Inhaler] Amox/Clav 875/125 [Augmentin] 1 each PO Q12H #20 tablet 08/13/18 - Allergies Allergies/Adverse Reactions: Allergies Allergy/AdvReac Type Severity Reaction Status Date / Time No Known Drug Allergies Allergy Verified 02/10/19 12:10 - Social History Does the pt smoke?: Yes Smoking Status: Current every day smoker Does the pt drink ETOH?: No Does the pt have substance abuse?: No - Immunizations Immunizations are current?: Yes - POLST Patient has POLST: No PD ED PE NORMAL - Vitals Vital signs reviewed: Yes - General General: Alert and oriented X 3, No acute distress, Well developed/nourished - HEENT HEENT: Atraumatic, PERRL, Moist mucous membranes - Neck Neck: No adenopathy, Thyroid normal, No JVD - Cardiac Cardiac: No murmur, Strong equal pulses, Other (Tachycardia with irregular rhythm) - Respiratory Respiratory: No respiratory distress, Clear bilaterally - Abdomen Abdomen: Normal bowel sounds, Soft, No organomegaly - Back Back: No CVA TTP - Derm Derm: Normal color, Warm and dry, No rash - Extremities Extremities: No deformity, No edema - Neuro Neuro: Alert and oriented X 3, vice president supply chain 2-12 intact, No motor deficit, No sensory deficit, Normal speech - Psych Psych: Normal mood, Normal affect Results - Vitals Vitals: Vital Signs - 24 hr 02/10/19 02/10/19 02/10/19 12:10 12:38 12:41 Temperature 36.9 C Heart Rate 125 H 131 H 118 H Respiratory 22 16 16 Rate Blood Pressure 129/91 H 140/97 H 116/90 H O2 Saturation 97 99 97 02/10/19 02/10/19 02/10/19 12:45 12:50 13:19 Temperature Heart Rate 101 H 99 98 Respiratory 17 16 16 Rate Blood Pressure 131/81 H 127/87 H 110/77 O2 Saturation 96 97 98 02/10/19 13:30 Temperature Heart Rate 103 H Respiratory 14 Rate Blood Pressure 143/100 H O2 Saturation 98 Oxygen O2 Source Room air - EKG (time done) 1209 Rate: Rate (enter#) (125), Tachy Rhythm: Atrial fibrillation Intervals: No: Wide QRS Ischemia: Non specific changes Compare to prior EKG: Old EKG unavailable - Labs Labs: Laboratory Tests 02/10/19 02/10/19 02/10/19 12:30 12:30 12:30 WBC 8.1 RBC 4.94 Hgb 14.9 Hct 44.4 MCV 89.9 MCH 30.2 MCHC 33.6 RDW 13.2 Plt Count 243 MPV 9.0 Neut # (Auto) 4.9 Lymph # (Auto) 1.7 [place] # (Auto) 0.9 Eos # (Auto) 0.5 Baso # (Auto) 0.1 Absolute Nucleated RBC 0.00 Nucleated RBC % 0.0 Sodium 141 Potassium 3.6 Chloride 107 Carbon Dioxide 25 Anion Gap 9.0 BUN 16 Creatinine 1.0 Estimated GFR (MDRD) 78 L Glucose 97 Calcium 8.2 L Total Bilirubin 0.9 AST 22 ALT 24 Alkaline Phosphatase 63 Troponin I High Sens 13.4 Total Protein 6.8 Albumin 3.7 Globulin 3.1 Albumin/Globulin Ratio 1.2 Lipase 44 TSH 02/10/19 12:30 WBC RBC Hgb Hct MCV MCH MCHC RDW Plt Count MPV Neut # (Auto) Lymph # (Auto) [place] # (Auto) Eos # (Auto) Baso # (Auto) Absolute Nucleated RBC Nucleated RBC % Sodium Potassium Chloride Carbon Dioxide Anion Gap BUN Creatinine Estimated GFR (MDRD) Glucose Calcium Total Bilirubin AST ALT Alkaline Phosphatase Troponin I High Sens Total Protein Albumin Globulin Albumin/Globulin Ratio Lipase TSH 1.93 PD MEDICAL DECISION MAKING - ED course Complexity details: reviewed results, re-evaluated patient, d/w patient ED course: IV was started and the patient was placed on a registered nurse cardiac telemetry he did have A. fib with rates in the 120s and 30s. He was given a dose of 20 mg of Cardizem IV and his rate came down into the upper 90s. He was feeling better. He was given prescriptions for metoprolol and is going to restart his aspirin. He does not know why he was not ever on prescription blood thinners. He plans to get the metoprolol prescription filled tonight and follow-up with the blade changer. He is instructed to return if he has worsening shortness of breath, dizzy, chest pain or other problems arise. Departure - Departure Disposition: 01 Home, Self Care Clinical Impression: Atrial fibrillation Qualifiers: Atrial fibrillation type: unspecified Qualified Code(s): I48.91 - Unspecified atrial fibrillation Dyspnea Qualifiers: Dyspnea type: shortness of breath Qualified Code(s): R06.02 - Shortness of breath; R06.00 - Dyspnea, unspecified; R06.01 - Orthopnea Condition: Good Instructions: Atrial Fibrillation Dc, ED Afib Follow-Up: Cat Florez ARNP [Primary Care Provider] - Katelyn Roberts MD [Physician No Access] - Comments: Start your metoprolol tonight as well as the aspirin. Follow-up with the blade changer as desired by your primary care provider. Return to the emergency department if you have increasing shortness of breath, feel dizzy or pass out develop chest pain or other problems arise.
[2019-02-10 12:37] LABS: BASOPHILS # (AUTO) 0.1 10^3/uL (0.0-0.1); BASOPHILS % (AUTO) 0.9 %; EOSINOPHILS # (AUTO) 0.5 10^3/uL (0.0-0.7); EOSINOPHILS % (AUTO) 6.5 %; HGB - HEMOGLOBIN 14.9 g/dL (14.0-18.0); LYMPHOCYTES # (AUTO) 1.7 10^3/uL (1.5-3.5); LYMPHOCYTES % (AUTO) 20.3 %; MEAN CORPUSCULAR HEMOGLOBIN 30.2 pg (27.0-31.0); MEAN CORPUSCULAR HGB CONC 33.6 g/dL (32.0-36.0); MEAN CORPUSCULAR VOLUME 89.9 fL (80.0-94.0); MONOCYTES # (AUTO) 0.9 10^3/uL (0.0-1.0); MONOCYTES % (AUTO) 11.1 %; NEUTROPHILS # (AUTO) 4.9 10^3/uL (1.5-6.6); NEUTROPHILS % (AUTO) 60.7 %; PLT - PLATELET COUNT 243 10^3/uL (130-450); RED BLOOD COUNT 4.94 10^6/uL (4.70-6.10); RED CELL DISTRIBUTION WIDTH 13.2 % (12.0-15.0); WHITE BLOOD COUNT 8.1 x10^3/uL (4.8-10.8)
[2019-02-10 12:50] LABS: ALBUMIN 3.7 g/dL (3.2-5.5); ALBUMIN/GLOBULIN RATIO 1.2 (1.0-2.2); BILIRUBIN,TOTAL 0.9 mg/dL (0.2-1.0); CALCIUM 8.2 mg/dL (8.5-10.3); TOTAL PROTEIN 6.8 g/dL (6.7-8.2)
[2019-02-10 13:53] VITALS: BP 138/89
== END 2019-02-10 13:59 | disposition home or self-care (01) ==
LOC: ED 12:02
DX: I48.91 Unspecified atrial fibrillation (principal); R06.02 Shortness of breath; R06.01 Orthopnea; F17.200 Nicotine dependence, unspecified, uncomplicated; Z96.642 Presence of left artificial hip joint
CPT/HCPCS: 36415; 80053; 83690; 84443; 84484; 85025; 93005; 96374; 99284

== ENCOUNTER 2019-02-19 12:13 | Outpatient (CLI) | payer MEDICAID | END 2019-02-19 23:59 | disposition home or self-care (01) | LOC: LAB.N 12:13 | PROVIDERS: ATTEND Nurse Practitioner Gerontology | DX: I48.91 Unspecified atrial fibrillation (principal); R06.02 Shortness of breath | CPT/HCPCS: 36415; 83880 ==

== ENCOUNTER 2019-02-19 12:14 | Outpatient (CLI) | payer MEDICAID ==
--- NOTE | 2019-02-19 14:43 | XRAY Report ---
Reason: SHORTNESS OF BREATH Procedure Date: 02/19/2019 Accession Number: [id number] / [id number] Procedure: XRN - Chest 2 View X-Ray CPT Code: 98682 Final Report FULL RESULT: EXAM: CHEST RADIOGRAPHY EXAM DATE: 02/19/2019 12:40 PM. CLINICAL HISTORY: Shortness of breath. COMPARISON: [facility] W/PA CHEST LT 07/14/2013 10:34 AM. TECHNIQUE: 2 views. FINDINGS: Lungs/Pleura: No focal opacities evident. No pleural effusion. No pneumothorax. Mild flattening of diaphragms as seen on lateral view. Mediastinum: Heart and mediastinal contours are stable when accounting for difference in technique, subtle calcifications of the aortic arch. Other: None. IMPRESSION: No acute cardiopulmonary abnormality. Mild diaphragmatic flattening can be seen with obstructive lung disease but is nonspecific. [facility]
== END 2019-02-19 12:15 | disposition home or self-care (01) ==
LOC: DI.N 12:14
PROVIDERS: ATTEND Nurse Practitioner Gerontology
DX: R06.02 Shortness of breath (principal); I48.91 Unspecified atrial fibrillation
CPT/HCPCS: 36415; 71046; 83880

== ENCOUNTER 2019-09-24 12:59 | Outpatient (CLI) | payer MEDICAID | END 2019-09-24 13:00 | disposition home or self-care (01) | LOC: COV 12:59 | PROVIDERS: ATTEND Family Medicine | DX: Z20.828 Contact with and (suspected) exposure to other viral communicable diseases (principal) ==

== ENCOUNTER 2021-11-10 10:32 | Outpatient (CLI) | payer MEDICAID ==
[2021-11-10 10:44] LABS: BASOPHILS # (AUTO) 0.1 10^3/uL (0.0-0.1); BASOPHILS % (AUTO) 1.3 %; EOSINOPHILS # (AUTO) 0.6 10^3/uL (0.0-0.7); EOSINOPHILS % (AUTO) 7.7 %; HCT - HEMATOCRIT 41.7 % (42.0-52.0); HGB - HEMOGLOBIN 14.1 g/dL (14.0-18.0); LYMPHOCYTES # (AUTO) 1.5 10^3/uL (1.5-3.5); MEAN CORPUSCULAR HGB CONC 33.8 g/dL (32.0-36.0); MEAN CORPUSCULAR VOLUME 88.7 fL (80.0-94.0); MONOCYTES # (AUTO) 0.7 10^3/uL (0.0-1.0); MONOCYTES % (AUTO) 9.2 %; NEUTROPHILS # (AUTO) 4.9 10^3/uL (1.5-6.6); NEUTROPHILS % (AUTO) 62.4 %; PLT - PLATELET COUNT 260 10^3/uL (130-450); RED CELL DISTRIBUTION WIDTH 12.9 % (12.0-15.0); WHITE BLOOD COUNT 7.9 x10^3/uL (4.8-10.8)
[2021-11-10 11:00] LABS: BUN - BLOOD UREA NITROGEN 17 mg/dL (6-20); CALCIUM 8.5 mg/dL (8.5-10.3); CARBON DIOXIDE - CO2 28 mmol/L (21-32); CHLORIDE 101 mmol/L (101-111); CHOL/HDL RATIO 2.6 (<5.0); CHOLESTEROL 156 mg/dL; CREATININE 0.9 mg/dL (0.6-1.2); GFR - MDRD 87 (>89); GLUCOSE 79 mg/dL (70-100); HDL CHOLESTEROL 59 mg/dL; LDL CHOLESTEROL,CALCULATED 78 mg/dL; LDL/HDL RATIO 1.3 (<3.6); SODIUM 136 mmol/L (135-145); TRIGLYCERIDES 96 mg/dL; VLDL CHOLESTEROL 19 mg/dL
== END 2021-11-10 10:33 | disposition home or self-care (01) ==
LOC: LAB 10:32
PROVIDERS: ATTEND Internal Medicine Cardiovascular Disease
DX: Z00.00 Encounter for general adult medical examination without abnormal findings (principal); I42.9 Cardiomyopathy, unspecified; Z87.891 Personal history of nicotine dependence
CPT/HCPCS: 36415; 80048; 80061; 83721; 85025

== ENCOUNTER 2022-11-23 10:58 | Emergency (ER) | payer MEDICAID ==
[2022-11-23 11:15] VITALS: BP 143/95; O2SAT 96
[2022-11-23] MEDS ORDERED: TETANUS/DIPHTHERIA/PERTUSSIS 0.5 ML SYRINGE IM ONE (12:13)
[2022-11-23] MEDS ORDERED: cefTRIAXone 1 GM VIAL IM STA (12:13)
[2022-11-23] MEDS ORDERED: LIDOCAINE 1% 2 ML VIAL MC ONE (12:13)
[2022-11-23] MEDS ORDERED: BACITRACIN ZINC OINT 1 PACKET TOP STA (12:13)
[2022-11-23] MEDS ORDERED: lidocaine 1% 20 ML MDV SUBQ ONE (12:13)
--- NOTE | 2022-11-23 12:16 | ED Physician Documentation ---
History of Present Illness - Stated complaint Stated Complaint: RT LEG INJ - Chief complaint Chief Complaint: Ext Problem - Additonal information Additional information: 57-year-old male presents emergency department for evaluation of a rather large and deep puncture wound to his right lower anterior leg. He was cleaning up yard debris when a branch about 1 inch in diameter impaled the leg. He believes it went in several inches in took some effort to pull it out. He presents with a defect on the anterior leg that is circular and can be probed to about 2 inches. Large amount of bloody and serous drainage. He is ambulatory. Uncert ain of last tetanus. He is not anticoagulated. Review of Systems Constitutional: reports: Reviewed and negative Skin: reports: Lesions Musculoskeletal: reports: Reviewed and negative Neurologic: reports: Reviewed and negative PD PAST MEDICAL HISTORY - Past Medical History Cardiovascular: Atrial fibrillation Respiratory: None Endocrine/Autoimmune: None GI: Hepatitis : None HEENT: Chronic vision loss Psych: None Musculoskeletal: Osteoarthritis Derm: None - Past Surgical History Past Surgical History: Yes General: Appendectomy Ortho: Other - Present Medications Home Medications: Ambulatory Orders Medication Instructions Recorded Confirmed HYDROcod/ACETAM 5/325 [[place] 5/325] 1 tab PO BID PRN #10 tab 11/23/22 cephALEXin [Keflex] 500 mg PO Q6H #28 cap 11/23/22 - Allergies Allergies/Adverse Reactions: Allergies Allergy/AdvReac Type Severity Reaction Status Date / Time No Known Drug Allergies Allergy Verified 02/10/19 12:10 - Social History Does the pt smoke?: Yes Smoking Status: Current every day smoker Does the pt drink ETOH?: No Does the pt have substance abuse?: No - Immunizations Immunizations are current?: Yes - POLST Patient has POLST: No PD ED PE EXPANDED - Extremities Extremities: Right leg (1 cm circular puncture wound that probes to deeper muscle fascial layer without exposed bone.) Results - Vitals Vitals: Vital Signs - 24 hr 11/23/22 11:04 Temperature 36.7 C Heart Rate 86 Respiratory 20 Rate Blood Pressure 143/95 H O2 Saturation 96 Oxygen O2 Source Room air - Rads (name of study) right leg Relevant Findings:: Final report received (No gross foreign body. No fracture) Procedures - Laceration (location) righ tleg Length in cm: 5 Wound type: Curved, Irregular, Into muscle, Contaminated Neurovascular status: Sensory intact, Motor intact Tendon involvement: Tendon intact Anesthesia: Lidocaine 1% Wound preparation: Chlorhexadine, Irrigated copiously NS, Debrided moderately Skin layer closure: Interrupted, Size #-0 - enter number (4), Sutures - enter # (8) Other: No complications, Tetanus booster given PD Medical Decision Making - ED course Complexity details: reviewed results, re-evaluated patient, d/w patient ED course: 57-year-old male presents emergency department for evaluation of a puncture wound/flap laceration to his right lower anterior leg sustained when cleaning yard debris at home. The leg was impaled by a branch about one 6 inch in diameter. Patient reports that he feels it penetrated superiorly about 1 to 2 inches and he had to pull twice to remove it. There was some loss of tissue with this. On presentation he does have circular flap defect that tunnels upward about 4 cm. X-ray did not show any gross foreign bodies or evidence of fracture. After anesthesia at the bedside we thoroughly irrigated the wound with a liter of saline after chlorhexidine rinse. The wound was closed with a total of 8 sutures. Given the contaminated wound as well as high risk of infection he was given ceftriaxone here in the ER and will be discharged with Keflex. Limited prescription for [place] also sent. Advised him to follow closely with his PCP Maya Chaparro. If not improving or he develops fascial defect ulceration he will need referral to wound therapy. The usual emergent return precautions for worsening symptoms was discussed. I am prescribing a short course of short-acting opioid pain medication for this patient. I have reviewed the patients [employer] and no concerning findings were noted. I have discussed that the opioids are for short term therapy only, and will not be refilled from the ED. Departure - Departure Disposition: Home, Self Care Clinical Impression: Puncture wound Laceration of right lower leg Qualifiers: Encounter type: initial encounter Qualified Code(s): S81.811A - Laceration without foreign body, right lower leg, initial encounter Condition: Stable Follow-Up: Maya Chaparro PA [Primary Care Provider] - Prescriptions: cephALEXin [Keflex] 500 mg PO Q6H #28 cap HYDROcod/ACETAM 5/325 [[place] 5/325] 1 tab PO BID PRN #10 tab PRN Reason: Pain >8 Comments: Marques you sustained a puncture wound and laceration to right lower leg. The x- ray did not show any foreign bodies or broken bones. Because this was a deeper puncture wound that tunneled a little bit there is a higher risk of infection. Please fill the prescription for the Keflex and begin taking as directed. I recommend Tylenol and ibuprofen for discomfort. For more severe pain a limited amount of [place] is also been sent to the pharmacy. Because of your leg swelling as well as peripheral vascular disease this wound is at higher risk for failure to heal. I would like you to follow closely with Maya Chaparro. If its not healing properly I believe you would benefit from referral to a wound therapy physician. Sutures, all 8 of them, should be removed in about 10 days time. In general you can gently wash this wound with warm soap and water each day, pat dry apply antibiotic ointment and a simple bandage. Return to the ER for any concerns of infection, fevers, redness or milky drainage. I am prescribing a short course of narcotic pain medication for you. These are potentially dangerous and addictive medications that should be used carefully. These medications may constipate you. Take an [id number]-yshcejq stool softener (docusate) twice daily with plenty of water while taking these medications. If you go 24 hours without a bowel movement, take [id number] miralax, per package instructions. Do not drink or drive while taking these medications. If you received narcotic or sedating medications while in the emergency department, do not drive for 24 hours. Store this medication in a safe, secure place and out of reach of children. It is a violation of federal law to give or sell this medication to another person or to use in a manner other than prescribed. The ED will not refill narcotic prescriptions, including prescriptions lost or stolen. To dispose of unwanted medications: 1. [facility] at [address] in [place] has a medication drop box. They accept prescription medications (in pill form) Saturday through Saturday 9:00 a.m. to 5:00 p.m. 2. The [facility] [employer] accepts prescription medications (in pill form only) for disposal year round. Call for more information. 3. Contact the [facility] for the next [facility] sponsored prescription drug collection event. , [phone], or [phone]; Note that many narcotic pain relievers also contain Tylenol/acetaminophen. Please ensure that your total dose of acetaminophen from all sources does not exceed 3 g (3000 mg) per day. Forms: PCP List
--- NOTE | 2022-11-23 12:34 | XRAY Report ---
PROCEDURE: Tib/Fib RT INDICATIONS: deep puncture wound; impaled with log TECHNIQUE: 2 views of the tibia and fibula were acquired. COMPARISON: None. FINDINGS: Bones: No fractures or dislocations. Osteoarthritic changes are noted throughout midfoot and hindfoo t joints. No suspicious bony lesions. Soft tissues: No suspicious soft tissue calcifications or masses. IMPRESSION: No acute bony abnormality. Midfoot and hindfoot joint osteoarthritis. No gross radiopaque foreign bodies are seen. Reviewed by: Jony Benjamin MD on 11/23/2022 12:33 PM PDT Approved by: Jony Benjamin MD on 11/23/2022 12:33 PM PDT Station ID: [id number]
== END 2022-11-23 13:29 | disposition home or self-care (01) ==
LOC: ED 10:58
DX: S81.831A Puncture wound without foreign body, right lower leg, initial encounter (principal); S81.811A Laceration without foreign body, right lower leg, initial encounter; W20.8XXA Other cause of strike by thrown, projected or falling object, initial encounter; Y93.H2 Activity, gardening and landscaping; I73.9 Peripheral vascular disease, unspecified; F17.200 Nicotine dependence, unspecified, uncomplicated
CPT/HCPCS: 12032; 73590; 90471; 90715; 96372; 99283; A9270

== ENCOUNTER 2023-01-30 09:42 | Outpatient (CLI) | payer MEDICAID ==
[2023-01-30 09:53] LABS: BASOPHILS # (AUTO) 0.1 10^3/uL (0.0-0.1); BASOPHILS % (AUTO) 0.8 %; EOSINOPHILS # (AUTO) 0.4 10^3/uL (0.0-0.7); EOSINOPHILS % (AUTO) 5.5 %; HCT - HEMATOCRIT 45.4 % (42.0-52.0); HGB - HEMOGLOBIN 14.7 g/dL (14.0-18.0); LYMPHOCYTES # (AUTO) 1.3 10^3/uL (1.5-3.5); LYMPHOCYTES % (AUTO) 16.6 %; MEAN CORPUSCULAR HEMOGLOBIN 29.6 pg (27.0-31.0); MEAN CORPUSCULAR HGB CONC 32.4 g/dL (32.0-36.0); MEAN CORPUSCULAR VOLUME 91.5 fL (80.0-94.0); MEAN PLATELET VOLUME 8.9 fL (7.4-11.4); MONOCYTES # (AUTO) 0.8 10^3/uL (0.0-1.0); MONOCYTES % (AUTO) 10.3 %; NEUTROPHILS # (AUTO) 5.1 10^3/uL (1.5-6.6); NEUTROPHILS % (AUTO) 66.5 %; PLT - PLATELET COUNT 258 10^3/uL (130-450); RED BLOOD COUNT 4.96 10^6/uL (4.70-6.10); RED CELL DISTRIBUTION WIDTH 13.3 % (12.0-15.0); WHITE BLOOD COUNT 7.6 x10^3/uL (4.8-10.8)
[2023-01-30 10:07] LABS: CALCIUM 9.1 mg/dL (8.5-10.3); POTASSIUM 4.5 mmol/L (3.5-4.5)
== END 2023-01-30 09:43 | disposition home or self-care (01) ==
LOC: LAB 09:42
PROVIDERS: ATTEND Internal Medicine Cardiovascular Disease
DX: I48.19 Other persistent atrial fibrillation (principal)
CPT/HCPCS: 36415; 80048; 85025

== ENCOUNTER 2023-05-28 09:57 | Day surgery (SDC) | payer MEDICAID ==
[2023-05-28] MEDS: LACTATED RINGERS 1,000 ML IV ONE (10:00)
--- NOTE | 2023-05-28 10:25 | HISTORY & PHYSICAL EXAMINATION ---
PMH/PSH - Past Medical History Cardiovascular: positive: Atrial fibrillation Respiratory: positive: None Endocrine/Autoimmune: positive: None GI: positive: Hepatitis : positive: None HEENT: positive: Chronic vision loss Psych: positive: None Musculoskeletal: positive: Osteoarthritis Derm: positive: None MRSA Hx?: No - Past Surgical History General: positive: Appendectomy Ortho: positive: Other Social & Family Hx - Social History Does the pt smoke?: Yes Smoking Status: Current every day smoker Does the pt drink ETOH?: No Does the pt have substance abuse?: No - POLST Patient has POLST: No Meds/Allgy - Home Medications Home Medications: Ambulatory Orders Medication Instructions Recorded Confirmed cephALEXin [Keflex] 500 mg PO Q6H #28 cap 11/23/22 12/12/22 Aspirin [Heydi] 325 mg PO DAILY 12/12/22 05/27/23 HYDROcod/ACETAM 5/325 [[place] 5/325] 1 - 2 tablet PO Q6H PRN #14 tablet 12/12/22 Metoprolol Succinate 100 mg PO DAILY 12/12/22 05/27/23 - Allergies Allergies/Adverse Reactions: Allergies Allergy/AdvReac Type Severity Reaction Status Date / Time No Known Drug Allergies Allergy Verified 02/10/19 12:10 Exam - Vital Signs Vital Signs: Vital Signs x48h Temp Pulse Resp BP Pulse Ox 05/28/23 10:00 98.1 F 94 16 152/108 H 97 Impression/Plan - Problem List Problem List: Pre-op H&P I am asked to see Marques for a screening colonoscopy examination. GI symptoms: None Family history of colon cancer: No Family history of colon polyps: No Personal history of colon polyps: No Last colonoscopy examination: Never Anticoagulant use: ASA - stopped 7 days ago The Past Family, Social and Personal History has been reviewed with the patient. ROS Denies fevers, chills, night sweats, shortness of breath, chest pain, change in the color of skin or urine, diarrhea, constipation, hematemesis, hematochezia, headache, visual changes, muscle aches. PE VSS, Afeb HEENT: Pupils equil, round and reactive to light, sclera anicteric, normal hearing, oral mucous membranes moist and without lesions NECK: Supple without lymphadenopathy, thyromegaly or carotid bruits LUNGS: Clear to auscultation without wheezing HEART: NSR without murmurs CHEST: Equal and symmetric expansion, no rib pain ABD: Soft, nontender, no hepatosplenomegaly, no hernias GROIN: No hernias or lymphadenopathy EXTREMITIES: Normal neuro and muscular exam SKIN: Anicteric Radiologic Studies N/A Assessment Request for a screening colonoscopy examination. Plan Screening colonoscopy under sedation through the Day Surgery admission protocol at [facility]. Consent: Marques has been counseled for the procedure, it's indications, risks, benefits and expected outcome as well as alternative therapies. We specifically discussed risks associated with anesthesia and insertion of the endoscope into the large intestine which includes bleeding and injury to the colon which may require surgical intervention. Marques understands, agrees, and consents to the proposed operative strategy and requests that we proceed with the procedure as outlined in our discussion. Panfilo Cobos MD, [facility] General Surgery Service
--- NOTE | 2023-05-28 11:18 | ANESTHESIA ---
Pre-Anesthesia VS, & Labs - Diagnosis SCREENING - Procedure COLONOSCOPY Vital Signs: Temp Pulse Resp BP Pulse Ox O2 Flow Rate 36.7 C 94 16 152/108 H 97 05/28/23 10:00 05/28/23 10:00 05/28/23 10:00 05/28/23 10:00 05/28/23 10:00 Height: 6 ft 2 in Weight (kg): 133.3 kg Body Mass Index: 37.7 BMI Classification: Obese - NPO >8 hours Last Fluid Intake: 0830 Home Medications and Allergies Aspirin [Heydi] 325 mg PO DAILY 12/12/22 Metoprolol Succinate 100 mg PO DAILY 12/12/22 Allergies/Adverse Reactions: Allergies Allergy/AdvReac Type Severity Reaction Status Date / Time No Known Drug Allergies Allergy Verified 02/10/19 12:10 Anes History & Medical History - Anesthetic History Anesthesia Complications: reports: No previous complications Family history of Anesthesia Complications: Denies - Medical History Cardiovascular: reports: Atrial fibrillation Pulmonary: reports: None Gastrointestinal: reports: Hepatitis Urinary: reports: None Musculoskeletal: reports: Osteoarthritis Endocrine/Autoimmune: reports: None Skin: reports: None Smoking Status: Former smoker Psychosocial: reports: No issues indicated - Surgical History General: reports: Appendectomy Orthopedic: reports: Other Results - EKG Results EKG Comparison: Reviewed EKG Exam General: Alert Dental: WNL, Dentures full Upper, Dentures full Lower Mouth Openin Fingerbreadth Neck Mobility: Normal Mallampati classification: II Thyromental Distance: 4-6 cm Plan Anesthesia Type: Total IV Consent for Procedure(s) Verified and Reviewed: Yes Code Status: Attempt Resuscitation ASA classification: 2-Mild systemic disease Is this case an emergency?: No
[2023-05-28] MEDS ORDERED: LIDOCAINE-PF 2% 10 ML AMP SUBQ ONE (11:41)
[2023-05-28] MEDS ORDERED: PROPOFOL 500 MG/50 ML 500 MG/50 ML VIAL ONE (11:41)
[2023-05-28] MEDS ORDERED: PROPOFOL 200 MG/20 ML VIAL IVP ONE (11:47)
[2023-05-28] MEDS: LACTATED RINGERS 400 ML IV ONE ×2 (11:57→12:38)
[2023-05-28 12:18] VITALS: BP 153/106; O2SAT 98
--- NOTE | 2023-05-28 12:54 | ANESTHESIA POST OP EVALUATION ---
Anesthesia Post Eval - Post Anesthesia Eval Vitals: Last Vital Signs Temp 36.5 C 05/28/23 12:16 Pulse 91 05/28/23 12:16 Resp 16 05/28/23 12:16 BP 153/106 H 05/28/23 12:16 Pulse Ox 98 05/28/23 12:16 O2 Flow Rate CV Function Including HR & BP: Stable Pain Control: Satisfactory Nausea & Vomiting: Negative Mental Status: Baseline Respiratory Status: Airway Patent Hydration Status: Satisfactory Anesthesia Complications: None
== END 2023-05-28 09:58 | disposition home or self-care (01) ==
LOC: SDS 09:57
PROVIDERS: ATTEND Surgery
PROC: 0DBN8ZZ Excision of Sigmoid Colon, Via Natural or Artificial Opening Endoscopic (ICD-10-PCS; 2023-05-28)
PROC: 0DBK8ZZ Excision of Ascending Colon, Via Natural or Artificial Opening Endoscopic (ICD-10-PCS; principal; 2023-05-28 11:00)
DX: Z12.11 Encounter for screening for malignant neoplasm of colon (principal); D12.2 Benign neoplasm of ascending colon; K63.5 Polyp of colon; K57.30 Diverticulosis of large intestine without perforation or abscess without bleeding; E66.9 Obesity, unspecified; Z68.37 Body mass index [BMI] 37.0-37.9, adult; I48.91 Unspecified atrial fibrillation; F17.200 Nicotine dependence, unspecified, uncomplicated; Z79.82 Long term (current) use of aspirin
CPT/HCPCS: 45380; J7120